=== PATIENT | female | born 1990 | race Caucasian/White ===

== ENCOUNTER 2018-06-27 17:41 | Emergency (ER) | payer OTHER ==
--- NOTE | 2018-06-27 18:34 | ED Physician Documentation ---
Ankle Injury - HISTORIAN Historian: patient, parent (Mom) - HPI Stated Complaint: fall, ankle inj Chief Complaint: Ankle Injury Additional Information: Patient is a 28-year-old female who presents to the ER with her mom. Patient s tates that her dogs were fighting so she went running to break them up and she twisted her ankle in a hole in the yard. She c/o ankle pain with swelling to the lateral aspect. She has full sensation and is able to wiggle toes, has palpable pulses. 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) Where: home Severity: moderate r: fall, twist Associated Symptoms:: swelling, popping sensation, unable to bear weight Modifying Factors:: pain on movement - ROS CONST: no problems CVS/RESP: none NEURO: denies: head injury GI/: denies: vomiting MS/SKIN/LYMPH: ankle swelling - PAST HX Past History: none Immunizations: UTD Allergies/Adverse Reactions: Allergies Allergy/AdvReac Type Severity Reaction Status Date / Time No Known Allergies Allergy Unverified 06/27/18 17:57 Home Medications: Ambulatory Orders Medication Instructions Recorded NK 06/27/18 - SOCIAL HX Smoking History: less than 1 pack/day Alcohol Use: none Drug Use: none - FAMILY HX Family History: none - VITAL SIGNS Vital Signs: Vital Signs Temp Pulse Resp BP Pulse Ox 97.8 F 102 H 16 145/85 99 06/27/18 17:45 06/27/18 17:45 06/27/18 17:45 06/27/18 17:45 06/27/18 17:45 - REVIEWED ASSESSMENTS Nursing Assessment Reviewed: Yes Vitals Reviewed: Yes Procedures Pre-Made Type: walking boot Pre-Proc Neuro Vasc Exam: normal Post-Proc Neuro Vasc Exam: normal ED Results Lab/Radiology - Radiology Radiology Impressions: Right ankle 3 views Clinical history pain Technique AP lateral oblique Findings: There is a avulsion fracture from the lateral margin of the calcaneus. Soft tissue swelling is present. Remainder of the ankle is unremarkable Electronically signed on Jun 27, 2018 6:28:37 PM CDT by: Tripp Pope - Orders Orders: ED Orders Category Date Time Status ANKLE 3 VIEWS OR MORE [RAD] Stat Exams 06/27/18 Taken URINALYSIS Routine Lab 06/27/18 18:15 Ordered URINE HCG Stat Lab 06/27/18 Uncollected Ankle Injury Physical Exam - Physical Exam General Appearance: alert, mild distress Foot: right foot: soft tissue tenderness Ankle: right: bone tenderness, limited range of motion, pain, swelling Gait: limited by pain Neuro: sensation nml, motor nml Vascular: no vascular compromise Tendons: tendon function nml Leg/Knee/Thigh: uninjured above ankle Skin: intact, warm Head/ENT: nml inspection Neck/Back: nml inspection Resp/CVS: breath sounds nml, heart sounds nml Discharge Clincal Impression: Calcaneus fracture, right Referrals: Primary Doctor,No [Primary Care Provider] - 2 Days Additional Instructions: Wear walking boot May alternate Tylenol and Ibuprofen as needed for pain Take Tramadol 1-2 tab by mouth every 6 hours as needed for breakthrough pain No weight bearing Prescription for crutches given to patient Will send referral to Dr. Beebe- follow up next week No work until released by Dr. Beebe Condition: Good Disposition: 01 HOME, SELF-CARE Decision to Admit: NO Decision Time: 18:58
--- NOTE | 2018-06-27 18:40 | Diagnostic Imaging Report ---
[facility] ED [facility] [id number] [facility].[address] [address] Report Submission Date: Jun 27, 2018 6:28:37 PM CDT Patient Study Name: HELDER MCKINNEY Date: Jun 27, 2018 5:56:18 PM CDT Modality Type: DX Gender: F Description: ANKLE 3 VIEWS OR MORE : 89 Institution: [facility] Physician: MARGARITA MONROY ED Right ankle 3 views Clinical history pain Technique AP lateral oblique Findings: There is a avulsion fracture from the lateral margin of the calcaneus. Soft tissue swelling is present. Remainder of the ankle is unremarkable Electronically signed on Jun 27, 2018 6:28:37 PM CDT by: Tripp LAWRENCE
[2018-06-27] MEDS: traMADol HCL 50 MG TABLET PO ONE (18:48)
[2018-06-27 18:56] LABS: APPEARANCE,URINE CLOUDY (CLEAR); COLOR,URINE YELLOW (YELLOW)
[2018-06-27 18:57] LABS: OCCULT BLOOD,URINE NEGATIVE (NEGATIVE); PH URINE 5.5 (5.0 - 8.0); UROBILINOGEN URINE 0.2 Eu (0.2-1.0)
[2018-06-27 19:01] VITALS: BP 135/80
== END 2018-06-27 18:59 | disposition home or self-care (01) ==
LOC: ED 17:41
DX: S92.001A Unspecified fracture of right calcaneus, initial encounter for closed fracture (principal); W01.0XXA Fall on same level from slipping, tripping and stumbling without subsequent striking against object, initial encounter; Y93.02 Activity, running; Y93.K9 Activity, other involving animal care; Y92.007 Garden or yard of unspecified non-institutional (private) residence as the place of occurrence of the external cause
CPT/HCPCS: 29515; 73610; 81002; 87086; 99283; 99284

== ENCOUNTER 2018-07-11 10:55 | Outpatient (CLI) | payer OTHER ==
--- NOTE | 2018-07-19 14:36 | OP Clinic Progress Note ---
SUBJECTIVE: Alice Ovalles is a 28-year-old female who presents to clinic today for a recent injury of her right foot. The patient had imaging performed in the emergency room demonstrating a fracture of the anterior portion of the calcaneus at the calcaneal head. The patient was put in a boot and sent to see me recently. I saw her last week and determined to get a CT scan to check for how large that fracture is as there was much more swelling and bruising than what it looked like the tiny avulsion fracture should show that was on x-ray. The CT results were reviewed as well as the CT images by myself and the patient was called to come back in to go ahead and put her in a cast once her swelling has come down after the weekend. The patient presents today denying any complaints or problems outside of minor pain. She has tried taking tramadol which is not helping and she is now trying alternating Tylenol and ibuprofen which seems to be better. The patient does not admit to any fevers, chills, nausea, vomiting, shortness of breath or chest pain at this time. She is good with having a cast at this time and understands the plan going forward. OBJECTIVE: Vitals: Temperature 97.6 degrees Fahrenheit, heart rate 99, respiration rate 18, blood pressure 147/74. O2 saturation is 99% on room air. Vascular: 2+ DP and PT pulses, right foot. Capillary refill time is less than 3 seconds to the toes of the right foot. Very mild edema is noted on the right dorsal mid foot. Dermatologic: There is less ecchymosis present at this time in the same areas as before on the right foot plantar laterally especially. There are no open lesions or concerning areas or evidence of limited blood flow of any kind. Musculoskeletal: There is still significant pain on palpation noted at the area of the CC joint where the fracture is located and the anterior calcaneus, right foot. No gross abnormalities are noted at this time. There is still mild swelling noted at that location of the anterior calcaneus, however. Neurologic: Light touch sensation is intact to all the toes of the right foot today. ASSESSMENT AND PLAN: 1. Avulsion fracture, mildly displaced, anterior calcaneus, subsequent encounter. We discussed the CT results that demonstrated an osseous/avulsion fracture of the anterolateral margin of the calcaneus. I do not believe that this fracture fragment is large enough that I would be able to put a screw across it. This was discussed with the patient. I believe the best course of action at this time is to continue going forward with conservative treatment with a below-knee cast at this time in order to let this heal appropriately. If at any point in the future she continues to have pain with this small fragment area that is mildly displaced we will consider taking it out at that time. The patient has no complaints about the plan going forward and we will plan on seeing her in 2 weeks for a follow-up and removal of the cast and reapplication of a new cast. We will likely take x-rays at that time to make sure things are looking improved. The patient knows she needs to remain non-weightbearing on the right lower extremity. She has crutches to help her do that completely. The patient was encouraged to take a baby aspirin daily just to help with thinning her blood to try and help a little bit with preventing blood clots. As long as she is moving her leg around a bunch she should be able to do pretty well. The patient has no further questions or complaints at this time. PROCEDURE #1: A below-knee cast was applied today with stockinette and a copious amount of padding underneath. The patient held the ankle at an appropriate 90 degrees while the cast was applied. The patient tolerated the procedure well. Return to the clinic for follow-up office visit in 2 weeks for repeat cast application and clinical exam. Kam Beebe D.P.M. (Dictated/Not Signed) [place] Job#: [id number] MTDD
== END 2018-07-11 10:56 ==
LOC: POD 10:55
PROVIDERS: ATTEND Podiatrist Foot & Ankle Surgery
DX: S92.021D Displaced fracture of anterior process of right calcaneus, subsequent encounter for fracture with routine healing (principal)
CPT/HCPCS: 29405; 99212

== ENCOUNTER 2018-08-25 09:00 | Outpatient (CLI) | payer OTHER ==
[2018-07-15 19:25] VITALS: BP 114/69
== END 2018-08-25 09:20 ==
LOC: POD 09:00
PROVIDERS: ATTEND Podiatrist Foot & Ankle Surgery
DX: S92.001D Unspecified fracture of right calcaneus, subsequent encounter for fracture with routine healing (principal)